=== PATIENT | male | born 1985 | race Caucasian/White ===

== ENCOUNTER 2020-06-15 09:01 | Inpatient (IN) | payer MEDICAID ==
[~2020-06-15] VITALS: Ht 190.5 cm; Wt 165.2 kg
--- NOTE | ~2020-06-15 | CON ---
[address] [address] CONSULTATION Name: PENELOPE LEE Room: [address] IN ..#: [id number] Admission: 06/15/20 Attend Phys: Fredrick Blood MD Discharge: Date of : 87 Report #: [id number] THIS REPORT FOR: //name// cc: SUDHA - No family physician/PCP SUDHA - No family physician/PCP ~ DATE OF SERVICE: 06/15/2020 HISTORY OF PRESENT ILLNESS: This is a pleasant 34-year-old male with past medical history significant for alcohol abuse, who is presenting with worsening abdominal distention for the last 2 days as well as deepening of the color of his urine and face. The patient reports that in 2014, he had jaundice and at that time, he was diagnosed with [place] spotted fever; however, he had abused alcohol heavily at that time. The patient reports complete cessation of alcohol at that time. Reports resuming alcohol since July. He reports drinking 1-2 alcoholic beverages per week. He continued to do that until 2 months back when he began abstinence again. The patient denies any episodes of confusion, falls, hematemesis or hematochezia. The patient does report one episode of coffee-ground emesis yesterday. The patient reports the first time he has been told that he has a diagnosis of cirrhosis. PAST MEDICAL HISTORY: Nonsignificant. PAST SURGICAL HISTORY: Left ankle surgery. SOCIAL HISTORY: As mentioned above, the patient has a history of heavy alcohol abuse in the past and he has recreational use until 2 months back. FAMILY HISTORY: Grandfather had colon cancer. REVIEW OF SYSTEMS: Comprehensive 10-point review of systems is negative except for what was mentioned in the HPI. PHYSICAL EXAMINATION: VITAL SIGNS: Temperature 36.9, pulse rate 95, respirations 16, blood pressure 154/74, pulse ox 96%. GENERAL: The patient is alert, awake, oriented x 3. HEENT: Mucous membranes are moist. Skin and sclerae are deeply icteric. Scattered spider angiomata all over the upper extremities. LUNGS: Clear to auscultation bilaterally. CARDIOVASCULAR: Rate and rhythm regular, S1, S2 present. ABDOMEN: Soft, distended, fluid thrill is present. EXTREMITIES: Warm, 3+ pitting edema. No clubbing or cyanosis. LABORATORY DATA: Hemoglobin 14.1, hematocrit 40.0, platelet count 111, [place] [address] CONSULTATION Name: PENELOPE LEE Room: [address] IN [facility]#: [id number] Admission: 06/15/20 Attend Phys: Fredrick Blood MD Discharge: Date of : 87 Report #: [id number] count 6.9. INR 3.8. Sodium 133, potassium 3.3, chloride 98, bicarbonate 25, BUN 16, creatinine 0.8, total bilirubin 15.2, AST 437, ALT 143, alkaline phosphatase 171. IMAGING: Abdomen and pelvis CT ____ liver consistent with cirrhosis, mild splenomegaly, numerous splenic ____ consistent with portal hypertension, moderate amount of ascites, moderate edema of the subcutaneous tissues. ASSESSMENT AND PLAN: Pleasant 34-year-old male with history of alcohol abuse, presenting with jaundice and abdominal distention. 1. The patient has cirrhosis. His MELD score is 33 and his prognosis remains very guarded, explained to the patient that this is a terminal condition and will not get better on its own with medications and vitamins like he seemed to suggest. The patient will need a full workup for liver transplant and referral to transplant center given his relatively young age. 2. Alcohol abuse. I explained to the patient that he needs to remain completely abstinent from alcohol and as well seek treatment and counseling for alcohol cessation. He will need to have documented sobriety; otherwise, he will not be eligible for liver transplant ____ 6 months. 3. Ascites. We will schedule the patient for paracentesis. 4. Varices. Schedule the patient for EGD tomorrow. 5. Encephalopathy. There is no evidence of encephalopathy The patient's liver enzymes are elevated, suggesting either active alcohol use at this time, which I think is most likely or another underlying cause of liver disease such as autoimmune hepatitis. We will get an autoimmune markers tomorrow. I suspect that is unlikely. By: 1615 [id number] Weir MD /panchito
[2020-06-15 09:10] VITALS: BP 225/112
[2020-06-15 09:33] LABS: ABSOLUTE BASOPHILS 0.1 thou/uL (0.0-0.2); ABSOLUTE EOSINOPHILS 0.2 thou/uL (0.0-0.7); ABSOLUTE LYMPHOCYTES 1.5 thou/uL (0.8-5.3); ABSOLUTE MONOCYTES 0.6 thou/uL (0.0-1.2); ABSOLUTE NEUTROPHILS 4.5 thou/uL (1.6-8.1); BASOPHILS 1.1 %; EOSINOPHILS 3.4 %; HEMOGLOBIN 14.1 gm/dL (14.0-18.0); LYMPHOCYTES 21.9 %; MCH 33.8 pg (26.0-34.0); MCHC 35.2 g/dL (28.0-37.0); MONOCYTES 8.8 %; MPV 7.7 fl. (7.2-11.1); NUCLEATED RBCS 0 /100WBC; PLATELET COUNT* 111 thou/uL (150-400); POLYS 64.8 %; RBC 4.17 mil/uL (4.50-6.00); RDW-CV 16.7 % (10.5-14.5); WBC 6.9 thou/uL (4.0-11.0)
[2020-06-15 09:42] LABS: CALCIUM 8.4 mg/dL (8.5-10.1); CREATININE 0.8 mg/dL (0.6-1.3); POTASSIUM 3.3 mmol/L (3.5-5.1)
[2020-06-15 09:46] LABS: ALBUMIN 2.4 g/dL (3.4-5.0); TOTAL BILIRUBIN 15.2 mg/dL (<0.1-1.0)
[2020-06-15 13:34] LABS: URINE BLOOD NEGATIVE (Negative); URINE CLARITY CLEAR; URINE COLOR BROWN; URINE GLUCOSE-RANDOM TRACE (Negative); URINE KETONES 2+ (Negative); URINE LEUKOCYTES-REFLEX NEGATIVE (Negative); URINE PROTEIN 1+ (Negative)
[2020-06-15 13:35] LABS: URINE BILIRUBIN 3+ (Negative); URINE NITRITE-REFLEX POSITIVE (Negative)
[2020-06-15 13:36] LABS: ICTOTEST (BILI CONFIRMATORY) Positive (Negative)
[2020-06-15 13:40] LABS: SQUAMOUS 0-3 Few /LPF (0-3); URINE WBC-REFLEX None Seen /HPF (0-5)
[2020-06-15 13:41] LABS: BACTERIA-REFLEX >30 Many /HPF (None Seen); MUCUS >6 Heavy strn/LPF (None Seen); URINE RBC None Seen /HPF (0-2)
[2020-06-15 13:42] LABS: CRYSTALS None Seen /LPF (None Seen); FINE GRANULAR CASTS 0-3 Few /LPF (None Seen)
[2020-06-15 14:37] VITALS: BP 154/72
[2020-06-15 15:00] VITALS: BP 154/74
[2020-06-15 15:58] LABS: APTT 56.7 Seconds (25.0-31.3); INR 3.8; PROTIME 37.1 Seconds (9.20-11.50)
[2020-06-15 16:20] VITALS: BP 155/72
[2020-06-15 16:39] LABS: HEMATOCRIT 36.5 % (42.0-52.0); HEMOGLOBIN 12.8 gm/dL (14.0-18.0); MCH 34.1 pg (26.0-34.0); MCHC 35.1 g/dL (28.0-37.0); MCV 97.2 fL (80.0-100.0); MPV 7.5 fl. (7.2-11.1); RBC 3.76 mil/uL (4.50-6.00); WBC 5.4 thou/uL (4.0-11.0)
--- NOTE | 2020-06-15 16:43 | EKG ---
[place] [address] ELECTROCARDIOGRAM REPORT Name: ROSAPENELOPE Nancy Room: [address] ADM IN ..#: [id number] Admission: 06/15/20 Attend Phys: Fredrick Blood, Discharge: Date of : 87 Date of Service: 06/15/20 0937 Report #: [id number] THIS REPORT FOR: //name// [facility] ED Test Date: 2020-06-15 Test Time: 09:37:33 Pat Name: PENELOPE LEE Department: Room: [facility] Gender: M Help Desk Associate: KRISTINA : 1985 Requested By: Thomas Sloan Order Number: [id number] MD: Bruno Chin Measurements Intervals Likely Rate: 97 P: 40 VT: 138 QRS: 3 QRSD: 104 T: 74 QT: 414 QTc: 526 Interpretive Statements Sinus rhythm Probable left atrial enlargement Borderline repolarization abnormality Prolonged QT interval Baseline wander in lead(s) V6 No previous ECG available for comparison Electronically Signed On 06-15-2020 16:43:34 ELECTRICAL AND INSTRUMENTATION MECHANIC by Bruno Chin [email or web address] <ELECTRONICALLY SIGNED> By: Bruno Chin MD, FAC 06/15/20 1643 0937 0937 Bruno Chin MD, [facility] /EPI
[2020-06-15 20:30] VITALS: BP 118/51
[2020-06-16 05:49] LABS: ABSOLUTE EOSINOPHILS 0.2 thou/uL (0.0-0.7); ABSOLUTE LYMPHOCYTES 0.8 thou/uL (0.8-5.3); ABSOLUTE MONOCYTES 0.4 thou/uL (0.0-1.2); BASOPHILS 0.4 %; EOSINOPHILS 4.8 %; HEMATOCRIT 35.5 % (42.0-52.0); HEMOGLOBIN 12.3 gm/dL (14.0-18.0); LYMPHOCYTES 17.9 %; MCH 33.9 pg (26.0-34.0); MCHC 34.6 g/dL (28.0-37.0); MONOCYTES 9.5 %; MPV 7.7 fl. (7.2-11.1); NUCLEATED RBCS 0 /100WBC; PLATELET COUNT* 86 thou/uL (150-400); POLYS 67.4 %; RBC 3.62 mil/uL (4.50-6.00); RDW-CV 17.3 % (10.5-14.5); WBC 4.5 thou/uL (4.0-11.0)
[2020-06-16 06:06] LABS: CREATININE 0.7 mg/dL (0.6-1.3); POTASSIUM 3.3 mmol/L (3.5-5.1)
[2020-06-16 06:22] LABS: INR 2.9; PROTIME 28.6 Seconds (9.20-11.50)
[2020-06-16 06:45] LABS: ALBUMIN 1.9 g/dL (3.4-5.0); CALCIUM 7.8 mg/dL (8.5-10.1); CREATININE 0.7 mg/dL (0.6-1.3); POTASSIUM 3.2 mmol/L (3.5-5.1); TOTAL BILIRUBIN 12.8 mg/dL (<0.1-1.0); TOTAL PROTEIN 5.7 g/dL (6.4-8.2)
[2020-06-16 08:10] VITALS: BP 136/52
[2020-06-16 15:21] LABS: CLARITY CLOUDY; SOURCE ASCITES; TOTAL VOLUME 4160 ml
[2020-06-16 15:31] LABS: BF RBC <1000 /mm3; TOTAL CELL COUNT 426 /mm3
[2020-06-16 15:45] LABS: INR 2.1; PROTIME 20.9 Seconds (9.20-11.50)
[2020-06-16 16:13] LABS: BF LYMPHOCYTES 85 %; BF POLYS 15 %; BF TISSUE 22 /100 WBC
[2020-06-16 19:45] VITALS: BP 113/36
[2020-06-17 01:00] VITALS: BP 125/46
[2020-06-17 02:06] LABS: HEPATITIS B SURFACE AG Negative (Negative)
[2020-06-17 04:23] LABS: ABSOLUTE EOSINOPHILS 0.2 thou/uL (0.0-0.7); ABSOLUTE LYMPHOCYTES 0.7 thou/uL (0.8-5.3); ABSOLUTE MONOCYTES 0.5 thou/uL (0.0-1.2); ABSOLUTE NEUTROPHILS 5.1 thou/uL (1.6-8.1); BASOPHILS 0.3 %; EOSINOPHILS 2.6 %; HEMATOCRIT 34.7 % (42.0-52.0); HEMOGLOBIN 12.1 gm/dL (14.0-18.0); LYMPHOCYTES 11.3 %; MCV 97.4 fL (80.0-100.0); MPV 7.7 fl. (7.2-11.1); NUCLEATED RBCS 0 /100WBC; POLYS 77.8 %; RBC 3.56 mil/uL (4.50-6.00); RDW-CV 17.4 % (10.5-14.5); WBC 6.5 thou/uL (4.0-11.0)
[2020-06-17 04:46] LABS: CALCIUM 8.2 mg/dL (8.5-10.1); CREATININE 0.9 mg/dL (0.6-1.3); POTASSIUM 3.8 mmol/L (3.5-5.1); TOTAL BILIRUBIN 14.7 mg/dL (<0.1-1.0); TOTAL PROTEIN 5.8 g/dL (6.4-8.2)
[2020-06-17 04:58] LABS: PREALBUMIN 7.6 mg/dL (18.0-35.7)
[2020-06-17 06:43] LABS: PLATELET COUNT* 110 thou/uL (150-400)
[2020-06-17 08:21] VITALS: BP 116/46
[2020-06-17 13:07] LABS: ANA INTERPRETATION Negative (Negative)
[2020-06-17 16:02] VITALS: BP 129/48
[2020-06-17 20:20] VITALS: BP 121/52
[2020-06-18 04:10] LABS: INR 1.8; PROTIME 18.6 Seconds (9.20-11.50)
[2020-06-18 04:14] LABS: ABSOLUTE EOSINOPHILS 0.2 thou/uL (0.0-0.7); ABSOLUTE LYMPHOCYTES 0.7 thou/uL (0.8-5.3); ABSOLUTE MONOCYTES 0.5 thou/uL (0.0-1.2); ABSOLUTE NEUTROPHILS 4.5 thou/uL (1.6-8.1); BASOPHILS 0.6 %; EOSINOPHILS 3.5 %; HEMATOCRIT 33.5 % (42.0-52.0); HEMOGLOBIN 11.6 gm/dL (14.0-18.0); LYMPHOCYTES 11.4 %; MCH 34.2 pg (26.0-34.0); MCHC 34.7 g/dL (28.0-37.0); MCV 98.6 fL (80.0-100.0); MONOCYTES 9.1 %; MPV 7.4 fl. (7.2-11.1); NUCLEATED RBCS 0 /100WBC; POLYS 75.4 %; RDW-CV 17.7 % (10.5-14.5); WBC 5.9 thou/uL (4.0-11.0)
[2020-06-18 04:33] LABS: ALBUMIN 1.9 g/dL (3.4-5.0); CALCIUM 7.4 mg/dL (8.5-10.1); CREATININE 0.9 mg/dL (0.6-1.3); POTASSIUM 3.4 mmol/L (3.5-5.1); TOTAL BILIRUBIN 15.6 mg/dL (<0.1-1.0); TOTAL PROTEIN 5.7 g/dL (6.4-8.2)
[2020-06-18 05:15] LABS: % SATURATION 52 % (20-39); IRON 65 ug/dL (50-175)
[2020-06-18 06:06] LABS: IgG 1669 mg/dL (603-1613); IgM 446 mg/dL (20-172)
[2020-06-18 07:20] VITALS: BP 121/52
[2020-06-18 08:23] LABS: PLATELET COUNT* 112 thou/uL (150-400)
[2020-06-18 13:07] LABS: BODY FLUID AMYLASE 15 U/L (()); BODY FLUID LDH 54 IU/L (()); BODY FLUID PROTEIN 0.4 g/dL (())
[2020-06-18 16:38] VITALS: BP 141/71
[2020-06-18 19:30] VITALS: BP 124/61
[2020-06-19] VITALS (7 sets, daily range): BP systolic 130–143; BP diastolic 65–73
[2020-06-19 05:32] LABS: ABSOLUTE LYMPHOCYTES 0.7 thou/uL (0.8-5.3); HEMOGLOBIN 12.3 gm/dL (14.0-18.0); MPV 7.6 fl. (7.2-11.1)
[2020-06-19 05:33] LABS: ABSOLUTE EOSINOPHILS 0.2 thou/uL (0.0-0.7); ABSOLUTE MONOCYTES 0.6 thou/uL (0.0-1.2); ABSOLUTE NEUTROPHILS 3.7 thou/uL (1.6-8.1); BASOPHILS 0.5 %; EOSINOPHILS 4.3 %; HEMATOCRIT 35.3 % (42.0-52.0); LYMPHOCYTES 13.2 %; MCH 34.7 pg (26.0-34.0); MCHC 34.9 g/dL (28.0-37.0); MCV 99.6 fL (80.0-100.0); MONOCYTES 10.9 %; NUCLEATED RBCS 0 /100WBC; POLYS 71.1 %; RBC 3.54 mil/uL (4.50-6.00); RDW-CV 17.4 % (10.5-14.5); WBC 5.2 thou/uL (4.0-11.0)
[2020-06-19 05:53] LABS: INR 1.8; PROTIME 18.6 Seconds (9.20-11.50)
[2020-06-19 06:04] LABS: ALBUMIN 1.9 g/dL (3.4-5.0); CALCIUM 7.9 mg/dL (8.5-10.1); CREATININE 0.8 mg/dL (0.6-1.3); TOTAL BILIRUBIN 18.7 mg/dL (<0.1-1.0); TOTAL PROTEIN 5.7 g/dL (6.4-8.2)
[2020-06-19 06:25] LABS: PLATELET COUNT* 114 thou/uL (150-400)
[2020-06-19 06:48] LABS: POTASSIUM 2.8 mmol/L (3.5-5.1)
[2020-06-19] MEDS ORDERED: LASIX 40 MG TAB40 MG PO ×2 (10:10→16:25)
[2020-06-19] MEDS ORDERED: SPIRONOLACTONE50 MG PO (10:10)
[2020-06-19] MEDS ORDERED: PRENATAL PO (10:10)
[2020-06-19] MEDS ORDERED: ALDACTONE100 MG PO (16:24)
[2020-06-19] MEDS ORDERED: KLOR-CON M2020 MEQ PO (16:25)
--- NOTE | 2020-06-21 10:07 | PATH ---
[address] [address] PATHOLOGY RPT PROCEDURE Name: PENELOPE LEE Room: [address]#: [id number] Admission: 06/15/20 Date of : 87 Discharge: 06/19/20 Report #: [id number] Path Case #: [id number] Note [facility] Accession Number: [id number] TESTS RESULT FLAG UNITS REF RANGE LAB Clinician Provided Cytology Information No. of containers..01 Other (Miscellaneous) Source: PERITONEAL DIAGNOSIS: 02 PERITONEAL NEGATIVE FOR MALIGNANT CELLS. MESOTHELIAL CELLS AND MODERATE INFLAMMATORY CELLS, PREDOMINANTLY CHRONIC. THIS INTERPRETATION INCLUDES EVALUATION OF A CELL BLOCK. Signed out by: 02 Kunal Gar MD, Pathologist NPI- [id number] Performed by: 01 Kelvin Zuniga, Director [facility] ([facility]) Gross description: 01 100 ML, CLEAR YELLOW, 1 TP 1 CB /LCS 06/19/2020 0836 Local FLAG LEGEND: L-Low Normal,H-High Normal,LL-Alert Low,HH-Alert High <-Panic Low,>-Panic High,A-Abnormal,AA-Critical Abnormal Performed at: 01 [facility] [address] [place] [address] Kory Reich MD, [address] [address] Kunal Gar MD, Specimen Comment: A courtesy copy of this report has been sent to [phone] Specimen Comment: Report sent to Performed at: 01 [facility] [address], [place], [place] [id number] MD Kory Reich MD Phone: [phone]
== END 2020-06-19 18:34 | disposition home or self-care (01) | DRG 441 ==
LOC: M.ERS 09:01 → EDBD 10:58 → M.3W 10:58 → M.TBA-ER 10:58 → M.3W 14:49
PROVIDERS: Emergency Medicine; Internal Medicine Gastroenterology; ADMIT Internal Medicine; ATTEND Internal Medicine
PROC: 0W9G3ZZ Drainage of Peritoneal Cavity, Percutaneous Approach (ICD-10-PCS; principal; 2020-06-16)
PROC: 06L38CZ Occlusion of Esophageal Vein with Extraluminal Device, Via Natural or Artificial Opening Endoscopic (ICD-10-PCS; principal; 2020-06-16)
PROC: 0F903ZX Drainage of Liver, Percutaneous Approach, Diagnostic (ICD-10-PCS; 2020-06-19)
DX: K72.90 Hepatic failure, unspecified without coma (principal); I85.01 Esophageal varices with bleeding; E87.1 Hypo-osmolality and hyponatremia; K76.6 Portal hypertension; K92.1 Melena; K70.31 Alcoholic cirrhosis of liver with ascites; F10.11 Alcohol abuse, in remission; K31.89 Other diseases of stomach and duodenum; E80.6 Other disorders of bilirubin metabolism; K21.00 Gastro-esophageal reflux disease with esophagitis, without bleeding; D64.9 Anemia, unspecified; Z88.8 Allergy status to other drugs, medicaments and biological substances; Z91.030 Bee allergy status

== ENCOUNTER → 2020-06-27 | Outpatient (CLI) | payer OTHER ==
[~2020-06-27] MED LIST: ALDACTONE100 MG PO; KLOR-CON M2020 MEQ PO; LASIX 40 MG TAB40 MG PO; PRENATAL PO; SPIRONOLACTONE50 MG PO
[2020-06-27 13:29] LABS: MPV 7.4 fl. (7.2-11.1)
[2020-06-27 13:32] LABS: HEMATOCRIT 41.9 % (42.0-52.0); HEMOGLOBIN 14.7 gm/dL (14.0-18.0); MCH 34.5 pg (26.0-34.0); MCHC 35.1 g/dL (28.0-37.0); MCV 98.3 fL (80.0-100.0); NUCLEATED RBCS 0 /100WBC; PLATELET COUNT* 159 thou/uL (150-400); RBC 4.26 mil/uL (4.50-6.00); RDW-CV 18.6 % (10.5-14.5); WBC 13.2 thou/uL (4.0-11.0)
[2020-06-27 13:43] LABS: INR 2.4
[2020-06-27 14:07] LABS: CALCIUM 8.7 mg/dL (8.5-10.1); CREATININE 1.9 mg/dL (0.6-1.3); POTASSIUM 4.9 mmol/L (3.5-5.1); TOTAL BILIRUBIN 38.1 mg/dL (<0.1-1.0)
[2020-06-27 14:20] LABS: TOTAL PROTEIN 2.2 g/dL (6.4-8.2)
[2020-06-27 14:24] LABS: ABSOLUTE LYMPHOCYTES 0.7 thou/uL (0.8-5.3); ABSOLUTE NEUTROPHILS 10.6 thou/uL (1.6-8.1)
[2020-06-27 14:25] LABS: PLATELET ESTIMATE ADEQUATE; TOXIC GRANULATION 2+
[2020-06-27 14:26] LABS: MACROCYTES 1+; TARGET CELLS Occasional
== END ==
LOC: M.LAB 12:55
PROVIDERS: ATTEND Internal Medicine Gastroenterology
DX: K72.90 Hepatic failure, unspecified without coma (principal)

== ENCOUNTER 2020-07-01 23:35 | Inpatient (IN) | payer OTHER ==
[~2020-07-01] VITALS: Ht 190.5 cm; Wt 174.6 kg
[2020-07-01 23:42] VITALS: BP 88/73
[2020-07-02] VITALS (13 sets, daily range): BP systolic 56–97; BP diastolic 24–55
[2020-07-02 00:24] LABS: CALCIUM 8.5 mg/dL (8.5-10.1); CREATININE 3.4 mg/dL (0.6-1.3); POTASSIUM 4.9 mmol/L (3.5-5.1)
[2020-07-02 00:36] LABS: ALBUMIN 1.6 g/dL (3.4-5.0); MAGNESIUM 2.7 mg/dL (1.8-2.4); TOTAL BILIRUBIN 36.2 mg/dL (<0.1-1.0); TOTAL PROTEIN 5.4 g/dL (6.4-8.2)
[2020-07-02 00:37] LABS: HEMATOCRIT 37.6 % (42.0-52.0); HEMOGLOBIN 13.1 gm/dL (14.0-18.0); MCH 34.3 pg (26.0-34.0); MCHC 34.9 g/dL (28.0-37.0); MCV 98.5 fL (80.0-100.0); MPV 7.3 fl. (7.2-11.1); NUCLEATED RBCS 0 /100WBC; PLATELET COUNT* 193 thou/uL (150-400); RBC 3.82 mil/uL (4.50-6.00); WBC 9.7 thou/uL (4.0-11.0)
[2020-07-02 00:58] LABS: INR 2.4; PROTIME 24.2 Seconds (9.20-11.50)
[2020-07-02 01:01] LABS: ABSOLUTE EOSINOPHILS 0.4 thou/uL (0.0-0.7); ABSOLUTE LYMPHOCYTES 1.6 thou/uL (0.8-5.3); ABSOLUTE MONOCYTES 1.8 thou/uL (0.0-1.2); ABSOLUTE NEUTROPHILS 5.9 thou/uL (1.6-8.1); METAMYELOCYTES 1 %
[2020-07-02 01:04] LABS: ANISOCYTOSIS 1+; CLUMPED PLTS RARE; PLATELET ESTIMATE ADEQUATE
[2020-07-02 05:17] LABS: HEMATOCRIT 37.2 % (42.0-52.0); HEMOGLOBIN 12.6 gm/dL (14.0-18.0)
[2020-07-02 09:36] LABS: INR 3.6; PROTIME 35.1 Seconds (9.20-11.50)
[2020-07-02 09:53] LABS: ALBUMIN 1.7 g/dL (3.4-5.0); CALCIUM 8.2 mg/dL (8.5-10.1); CREATININE 3.7 mg/dL (0.6-1.3); MAGNESIUM 2.5 mg/dL (1.8-2.4); POTASSIUM 5.6 mmol/L (3.5-5.1)
--- NOTE | 2020-07-02 10:22 | EKG ---
[place] [address] ELECTROCARDIOGRAM REPORT Name: PENELOPE LEE Room: [address] ADM IN [facility].#: [id number] Admission: 07/02/20 Attend Phys: Corona Velasquez Discharge: Date of : 87 Date of Service: 07/01/20 2347 Report #: [id number] THIS REPORT FOR: //name// [facility] ED Test Date: 2020-07-01 Test Time: 23:47:29 Pat Name: PENELOPE LEE Department: Room: [facility] Gender: M Tobacco Dipper: [facility] : 1985 Requested By: Alina Villanueva Order Number: [id number] MD: Nolberto Luu Measurements Intervals [place] Rate: 93 P: 37 MO: 156 QRS: 13 QRSD: 120 T: 32 QT: 410 QTc: 511 Interpretive Statements Sinus rhythm Probable left atrial enlargement Nonspecific intraventricular conduction delay Minimal ST depression, lateral leads Compared to ECG 06/15/2020 09:37:33 no change Electronically Signed On 07-02-2020 10:21:56 LEATHER SHAVER by Nolberto Luu [email or web address] <ELECTRONICALLY SIGNED> By: Nolberto Luu MD, FACC 07/02/20 1021 2347 2347 Nolberto Luu MD, [facility] /EPI
[2020-07-02 10:24] LABS: TOTAL BILIRUBIN 35.1 mg/dL (<0.1-1.0)
[2020-07-02 10:41] LABS: URINE BLOOD 1+ (Negative); URINE CLARITY CLEAR; URINE COLOR YELLOW; URINE GLUCOSE-RANDOM TRACE (Negative); URINE KETONES TRACE (Negative); URINE LEUKOCYTES-REFLEX TRACE (Negative); URINE PROTEIN 2+ (Negative); URINE SPECIFIC GRAVITY 1.025 (1.005-1.030)
[2020-07-02 10:42] LABS: ICTOTEST (BILI CONFIRMATORY) Positive (Negative); URINE BILIRUBIN 3+ (Negative); URINE NITRITE-REFLEX POSITIVE (Negative)
[2020-07-02 10:58] LABS: BACTERIA-REFLEX >30 Many /HPF (None Seen); CASTS None Seen /LPF (None Seen); CRYSTALS None Seen /LPF (None Seen); MUCUS 0-3 Light strn/LPF (None Seen); SQUAMOUS 4-10 Moderate /LPF (0-3); URINE RBC 3-10 Few /HPF (0-2); URINE WBC-REFLEX 0-5 Rare /HPF (0-5)
[2020-07-02 11:04] LABS: TOTAL PROTEIN 5.8 g/dL (6.4-8.2)
[2020-07-02 14:21] LABS: HEMATOCRIT 34.2 % (42.0-52.0)
[2020-07-02 14:35] LABS: INR 3.8; PROTIME 37.5 Seconds (9.20-11.50)
[2020-07-02 14:52] LABS: ALBUMIN 1.8 g/dL (3.4-5.0); CALCIUM 7.6 mg/dL (8.5-10.1); MAGNESIUM 2.5 mg/dL (1.8-2.4); TOTAL BILIRUBIN 32.1 mg/dL (<0.1-1.0); TROPONIN-I LEVEL 0.17 ng/mL (<0.06)
[2020-07-02 15:10] LABS: CREATININE 4.1 mg/dL (0.6-1.3)
[2020-07-02 15:15] LABS: POTASSIUM 6.4 mmol/L (3.5-5.1)
[2020-07-02 15:42] LABS: TOTAL PROTEIN 5.2 g/dL (6.4-8.2)
--- NOTE | 2020-07-02 21:16 | CON ---
[address] [address] CONSULTATION Name: PENELOPE LEE Nancy Room: [address] IN .R.#: [id number] Admission: 07/02/20 Attend Phys: Suellen Martin Discharge: Date of : 87 Report #: [id number] THIS REPORT FOR: cc: SUDHA - Kaye family physician/PCP SUDHA - No family physician/PCP ~ Santos Polanco MD DATE OF SERVICE: 07/02/2020 CONSULT REQUESTED BY: Dr. Rodríguez. INDICATION FOR CONSULTATION: Acute hypoxemic respiratory failure/ventilator management. HISTORY OF PRESENT ILLNESS: A 35-year-old gentleman with past medical history includes a history of cirrhosis of the liver. The patient was recently admitted to this hospital and had been treated with diuretics. The patient is now readmitted with nausea and vomiting up blood with an upper GI bleed. The patient also was short of breath and was complaining of chest discomfort on initial presentation. The patient initially was maintaining O2 saturation with 2 liters of oxygen. He, however, is in shock this afternoon. The patient had a code blue called. He subsequently was endotracheally intubated. He currently is on 100% FiO2 with 10 of PEEP. He has multiple pressors running. Blood pressure, however, is not adequately maintained. He also has a bicarbonate of 8 consistent with severe metabolic acidosis. The patient also is in acute renal failure and has an elevated potassium. There is blood being suctioned out from his OG. There is bleeding from other sites as well. The patient is unable to provide further history or review of systems. PAST MEDICAL HISTORY: Cirrhosis of liver, alcohol abuse, [place] spotted fever, left foot injury, morbid obesity. SOCIAL HISTORY: Has an extensive history of alcohol use in the past. No known history of smoking or illegal drug use. CURRENT MEDICATIONS: List in [facility] reviewed. HOME MEDICATIONS: List also in [facility] reviewed. PHYSICAL EXAMINATION: GENERAL: The patient was responding to painful stimuli. He did open eyes at times, but did not respond to verbal commands. VITAL SIGNS: Had a heart rate of 100 and a blood pressure of 80/40, was saturating only 88%-90%, on pressure control mode of ventilation. His ventilator settings are in [facility] and these are reviewed. He is on 100% [place] [address] CONSULTATION Name: PENELOPE LEE Nancy Room: [address] IN [facility]#: [id number] Admission: 07/02/20 Attend Phys: Suellen Martin Discharge: Date of : 87 Report #: [id number] with 10 of PEEP, set rate is 20. He was breathing around 30. He is afebrile with a temperature of 36.1. HEENT: Head is normocephalic and atraumatic. There is blood coming out of his OG. NECK: Does not show raised JVP, asymmetry, mass or lymph nodes. CHEST: Symmetrical expansion on inspection and palpation. On auscultation, breath sounds are bilaterally equal. I did not hear any added sounds. HEART: Regular, no murmur. ABDOMEN: Mildly distended, nontender. EXTREMITIES: Lower extremities 1+ edema bilaterally, no calf tenderness. LABORATORY DATA: The patient's chest x-ray is reviewed and does show bilateral infiltrates. The patient's lab work is in [place] and this is reviewed. ASSESSMENT: 1. Acute hypoxemic respiratory failure. 2. Acute hemorrhagic and possibly septic shock. 3. Acute upper gastrointestinal bleed. 4. Pulmonary infiltrates. 5. Cirrhosis of liver. 6. Past medical history of alcohol abuse. 7. Coagulopathy. PLAN: We did adjust the ventilator and recommended that if active measures are to be continued, we should go ahead and place an arterial line as well for better hemodynamic monitoring as well as frequent ABGs. Other physicians on the case; however, discussed with the family and explained a very poor prognosis and the patient was made comfort measures, which I fully understand considering the patient's poor prognosis. The patient had been on Protonix as well as an octreotide infusion, had been given blood products as well as antibiotics and bicarbonate as well in addition to other measures to decrease his potassium. Nephrology service as well as GI service had also seen the patient. A total of 35 minutes of critical care time was spent. <ELECTRONICALLY SIGNED> By: Santos Polanco MD 07/02/206 1800 1845Avenancio Polanco MD /nt
[2020-07-04 10:07] LABS: UREA NITROGEN-RANDM URINE 237 mg/dL (Not Estab.)
--- NOTE | 2020-07-04 12:30 | CON ---
[address] [address] CONSULTATION Name: PENELOPE LEE Room: [address] IN [facility]#: [id number] Admission: 07/02/20 Attend Phys: Suellen Martin Discharge: 07/02/20 Date of : 87 Report #: [id number] THIS REPORT FOR: cc: SUDHA - No family physician/PCP FAM - No family physician/PCP ~ Greg Weir MD DATE OF SERVICE: 07/02/2020 HISTORY OF PRESENT ILLNESS: A 35-year-old gentleman with alcoholic cirrhosis, who was recently seen by the GI service. The patient at that time was admitted with hepatic decompensation, had undergone an EGD and EGD demonstrated grade 3 varices, which were banded. The patient presents back to the Emergency Room feeling weak with nausea and hematemesis. The patient was hypotensive in the ER and in the ICU. The patient was placed on pressors and the GI service has been consulted for possible variceal GI bleeding. Prior to being interviewed by me, the patient lost pulse and became hypotensive and coded. The history has been obtained from his previous admission and from his who is at the bedside. PAST MEDICAL HISTORY: Significant for alcohol abuse, cirrhosis. PAST SURGICAL HISTORY: None. SOCIAL HISTORY: The patient denies smoking or recreational drug use. Alcohol abuse, the patient denies any alcohol use since 02/2020. REVIEW OF SYSTEMS: Unable to obtain because of the patient's mental status. PHYSICAL EXAMINATION: VITAL SIGNS: The patient's blood pressure is 50/30, pulse rate 105-110, pulse ox 97% on ventilator and he is currently on both vasopressin and Levophed. GENERAL: The patient is sedated, intubated, deeply icteric, significant spider angiomata. The patient's general condition indicates morbid obesity. LUNGS: Clear to auscultation. CARDIOVASCULAR: Rate and rhythm regular, S1, S2 present. ABDOMEN: Soft. There is no distention, guarding or rigidity. EXTREMITIES: Warm. There is 2+ pitting edema bilaterally. LABORATORY DATA: Hemoglobin 13.1, hematocrit 37.6. Sodium 128, potassium 6.4, chloride 97, bicarbonate 23, BUN 44, creatinine 4.1. Lactic acid 14.3, total bilirubin 32, AST 2052, ALT 359, alkaline phosphatase 138, albumin 1.8. IMAGING: Abdomen and pelvis CT demonstrates patchy bibasilar atelectasis, small to moderate amount of pelvic ascites, nodular [place] [address] CONSULTATION Name: PENELOPE LEE Room: [address]#: [id number] Admission: 07/02/20 Attend Phys: Suellen Martin Discharge: 07/02/20 Date of : 87 Report #: [id number] ASSESSMENT AND PLAN: This is a 35-year-old gentleman with alcoholic cirrhosis, presenting with hypotension and shock. The patient's hemoglobin dropped only from 13.1-11 over the course of 13 hours; therefore, I suspect the shock is mostly septic in nature. I had a detailed discussion with the who is at his bedside. I explained to the that we may be able to perform endoscopy and stop bleeding, but his overall prognosis remains unchanged. The patient's MELD score is in excess of 40 and at this time, he is not a transplant candidate. Therefore, there is no viable long-term treatment plan for him. The patient expressed wishes to not be resuscitated if he did code again in the past to the . The patient's wants him to be on comfort measures, but she will discuss this with her family before coming to a final decision. Thank you for this consultation and we will continue to follow along. About 35 minutes were spent at the bedside with the patient. <ELECTRONICALLY SIGNED> By: Greg Weir MD 07/04/20 1230 1616 1647Greg Weir MD /nt
== END 2020-07-02 18:24 | DRG 682 ==
LOC: M.ERS 23:35 → M.TBA-ER 07-02 00:33 → M.ICU 07-02 08:41
PROVIDERS: Emergency Medicine; Internal Medicine; Internal Medicine Nephrology; ADMIT Internal Medicine; ATTEND Internal Medicine
PROC: 30233M1 Transfusion of Nonautologous Plasma Cryoprecipitate into Peripheral Vein, Percutaneous Approach (ICD-10-PCS; principal; 2020-07-02)
PROC: 5A1935Z Respiratory Ventilation, Less than 24 Consecutive Hours (ICD-10-PCS; principal; 2020-07-02)
PROC: 0BH17EZ Insertion of Endotracheal Airway into Trachea, Via Natural or Artificial Opening (ICD-10-PCS; principal; 2020-07-02)
PROC: 02HV33Z Insertion of Infusion Device into Superior Vena Cava, Percutaneous Approach (ICD-10-PCS; principal; 2020-07-02)
PROC: 30233K1 Transfusion of Nonautologous Frozen Plasma into Peripheral Vein, Percutaneous Approach (ICD-10-PCS; principal; 2020-07-02)
DX: N17.0 Acute kidney failure with tubular necrosis (principal); J96.01 Acute respiratory failure with hypoxia; E43 Unspecified severe protein-calorie malnutrition; G92 Toxic encephalopathy; K29.71 Gastritis, unspecified, with bleeding; E87.1 Hypo-osmolality and hyponatremia; D68.9 Coagulation defect, unspecified; Z68.42 Body mass index [BMI] 45.0-49.9, adult; K76.6 Portal hypertension; R57.8 Other shock; K70.31 Alcoholic cirrhosis of liver with ascites; Z79.899 Other long term (current) drug therapy; Z88.8 Allergy status to other drugs, medicaments and biological substances; Z91.030 Bee allergy status; F10.10 Alcohol abuse, uncomplicated; Y90.9 Presence of alcohol in blood, level not specified; Z87.891 Personal history of nicotine dependence; K70.30 Alcoholic cirrhosis of liver without ascites; I95.9 Hypotension, unspecified; E66.01 Morbid (severe) obesity due to excess calories; F41.1 Generalized anxiety disorder; F32.9 Major depressive disorder, single episode, unspecified; E87.5 Hyperkalemia; R77.8 Other specified abnormalities of plasma proteins; K72.90 Hepatic failure, unspecified without coma; T50.995A Adverse effect of other drugs, medicaments and biological substances, initial encounter; Z51.5 Encounter for palliative care; Z66 Do not resuscitate; Y92.89 Other specified places as the place of occurrence of the external cause